=== PATIENT | female | born 1985 | race Caucasian/White ===

== ENCOUNTER 2017-12-02 12:15 | Emergency (ER) | payer MEDICAID ==
[~2017-12-02] VITALS: Ht 167.6 cm; Wt 50.0 kg
[~2017-12-02 12:15] MED LIST: CIPR500T4 PO
[2017-12-02 12:17] VITALS: BP 108/73; PULSE 85; RESP 18; TEMP 98.4; O2SAT 98
[2017-12-02 13:14] LABS: AUTOMATED NEUTROPHIL # 2.4 TH/MM3 (1.8-7.7); BASOPHIL % 0.6 % (0.0-2.0); EOSINOPHIL # 0.1 TH/MM3 (0-0.4); EOSINOPHIL % 1.7 % (0.0-4.0); HEMATOCRIT 34.8 % (35.0-46.0); HEMOGLOBIN 11.9 GM/DL (11.6-15.3); LYMPH % 40.1 % (9.0-44.0); MEAN CELL VOLUME 86.8 FL (80.0-100.0); MEAN CORPUSCULAR HEMOGLOBIN 29.7 PG (27.0-34.0); MEAN CORPUSCULAR HGB CONC 34.2 % (32.0-36.0); MEAN PLATELET VOLUME 9.5 FL (7.0-11.0); MONO % 8.2 % (0.0-8.0); MONOCYTE # 0.4 TH/MM3 (0-0.9); NEUT % 49.4 % (16.0-70.0); PLATELET COUNT 179 TH/MM3 (150-450); RED CELL DISTRIBUTION WIDTH 13.8 % (11.6-17.2); WHITE BLOOD COUNT 4.9 TH/MM3 (4.0-11.0)
[2017-12-02 13:22] LABS: INTERNATIONAL NORMALIZED RATIO 1.1 RATIO; PROTHROMBIN TIME - PATIENT 11.2 SEC (9.8-11.6)
[2017-12-02 13:40] LABS: ALBUMIN 3.8 GM/DL (3.4-5.0); ALT (GPT) 18 U/L (10-53); AST (GOT) 12 U/L (15-37); BLOOD UREA NITROGEN 17 MG/DL (7-18); CALCIUM 8.1 MG/DL (8.5-10.1); CHLORIDE 108 MEQ/L (98-107); CREATININE 1.02 MG/DL (0.50-1.00); GLOMERULAR FILTRATION RATE 63 ML/MIN (>89); GLUCOSE,RANDOM 58 MG/DL (74-106); MAGNESIUM 2.1 MG/DL (1.5-2.5); SODIUM (NA) 141 MEQ/L (136-145)
--- NOTE | 2017-12-02 13:40 | RADRPT ---
EXAM DATE/TIME: 12/02/2017 13:16 [place] COMPARISON: No previous studies available for comparison. INDICATIONS : Patient has had chest pressure and shortness of breath with history of smoking. MEDICAL HISTORY : None. SURGICAL HISTORY : thoracic surgery ENCOUNTER: Initial ACUITY: >1 year PAIN SCORE: 5/10 LOCATION: Bilateral mid chest FINDINGS: PA and lateral views of the chest demonstrate the lungs to be symmetrically aerated without evidence of mass, infiltrate or effusion. The cardiomediastinal contours are unremarkable. There is an old T6 compression fracture. Posterior fixation is seen extending from T4-T8. Orthopedic hardware is intact . Scoliotic curvature noted. CONCLUSION: No acute disease. Driss Carrasco Jr., MD on December 02, 2017 at 13:37 Board Certified Radiologist. This report was verified electronically.
[2017-12-02 13:44] LABS: ALKALINE PHOSPHATASE 45 U/L (45-117); TOTAL BILIRUBIN ADULT 0.2 MG/DL (0.2-1.0); TROPONIN I LESS THAN 0.02 NG/ML (0.02-0.05)
--- NOTE | 2017-12-02 14:43 | PD ---
HPI . Chest pain and shortness of breath Chief Complaint: Chest Pain Time Seen by Provider: 14:31 Travel History International Travel<30 days: No Contact w/Intl Traveler<30days: No Traveled to known affect area: No History of Present Illness HPI This patient presents with a chief complaint of chest pain and shortness of breath which started last night when she was "yelling." She states that she also felt lightheaded. Her symptoms are now improved. PFSH Past Medical History Respiratory: Yes (PT ON VENTILATOR FOR RESPIRATORY DISTRESS) ?: Not LMP: Now Social History Alcohol Use: No (NEGATIVE FOR ALCOHOL) Tobacco Use: Yes Substance Use: Yes (PT + FOR COCAINE, AND MARJUANA ) Allergies-Medications (Allergen,Severity, Reaction): Coded Allergies: No Known Allergies (Verified , 02/04/15) Reported Meds & Prescriptions Reported Meds & Active Scripts Active Cipro (Ciprofloxacin HCl) 500 Mg Tab 500 Mg PO Q12 5 Days Review of Systems Except as stated in HPI: all other systems reviewed are Neg Physical Exam Narrative GENERAL: Patient is sitting on the edge of bed using her phone in no distress at all. SKIN: warm/dry. Normal color and turgor. HEAD: Normocephalic. Atraumatic. EYES: Pupils equal and round. No scleral icterus. No injection or drainage. ENT: No nasal bleeding or discharge. Mucous membranes pink and moist. NECK: Trachea midline. Full range of motion without pain.. CARDIOVASCULAR: Regular rate and rhythm. Heart sounds are normal. RESPIRATORY: No accessory muscle use. Clear to auscultation. Breath sounds equal bilaterally. MUSCULOSKELETAL: No obvious deformities. NEUROLOGICAL: Awake and alert. No obvious cranial nerve deficits. Motor grossly within normal limits. Normal speech. PSYCHIATRIC: Appropriate mood and affect; insight and judgment normal. Data Data Last Documented VS Vital Signs Date Time Temp Pulse Resp B/P (MAP) Pulse Ox O2 Delivery O2 Flow Rate FiO2 12/02/17 12:17 98.4 85 18 108/73 (85) 98 Orders Orders Electrocardiogram (12/02/17 12:33) Ckmb (Isoenzyme) Profile (12/02/17 12:33) Complete Blood Count With Diff (12/02/17 12:33) Comprehensive Metabolic Panel (12/02/17 12:33) Magnesium (Mg) (12/02/17 12:33) Prothrombin Time / Inr (Pt) (12/02/17 12:33) Act Partial Throm Time (Ptt) (12/02/17 12:33) Troponin I (12/02/17 12:33) Chest, Pa & Lat (12/02/17 12:33) CKMB (12/02/17 12:40) CKMB% (12/02/17 12:40) Labs Laboratory Tests Test 12/02/17 12:40 White Blood Count 4.9 TH/MM3 Red Blood Count 4.00 MIL/MM3 Hemoglobin 11.9 GM/DL Hematocrit 34.8 % Mean Corpuscular Volume 86.8 FL Mean Corpuscular Hemoglobin 29.7 PG Mean Corpuscular Hemoglobin Concent 34.2 % Red Cell Distribution Width 13.8 % Platelet Count 179 TH/MM3 Mean Platelet Volume 9.5 FL Neutrophils (%) (Auto) 49.4 % Lymphocytes (%) (Auto) 40.1 % Monocytes (%) (Auto) 8.2 % Eosinophils (%) (Auto) 1.7 % Basophils (%) (Auto) 0.6 % Neutrophils # (Auto) 2.4 TH/MM3 Lymphocytes # (Auto) 2.0 TH/MM3 Monocytes # (Auto) 0.4 TH/MM3 Eosinophils # (Auto) 0.1 TH/MM3 Basophils # (Auto) 0.0 TH/MM3 CBC Comment DIFF FINAL Differential Comment Prothrombin Time 11.2 SEC Prothromb Time International Ratio 1.1 RATIO Activated Partial Thromboplast Time 26.1 SEC Blood Urea Nitrogen 17 MG/DL Creatinine 1.02 MG/DL Random Glucose 58 MG/DL Total Protein 7.0 GM/DL Albumin 3.8 GM/DL Calcium Level 8.1 MG/DL Magnesium Level 2.1 MG/DL Alkaline Phosphatase 45 U/L Aspartate Amino Transf (AST/SGOT) 12 U/L Alanine Aminotransferase (ALT/SGPT) 18 U/L Total Bilirubin 0.2 MG/DL Sodium Level 141 MEQ/L Potassium Level 3.7 MEQ/L Chloride Level 108 MEQ/L Carbon Dioxide Level 27.0 MEQ/L Anion Gap 6 MEQ/L Estimat Glomerular Filtration Rate 63 ML/MIN Total Creatine Kinase 129 U/L Creatine Kinase MB 1.6 NG/ML Troponin I LESS THAN 0.02 NG/ML MDM Medical Decision Making Medical Screen Exam Complete: Yes Emergency Medical Condition: Yes Interpretation(s) EKG shows a normal sinus rhythm with no acute ischemic change. Differential Diagnosis Differential diagnosis of chest pain includes but is not limited to musculoskeletal pain, pulmonary embolism, acute coronary syndrome, pneumonia, pleurisy Narrative Course Patient presents with chest pain, shortness of breath and lightheadedness which started after she was yelling last night. She had a panic attack. Workup. In the emergency department is normal. CBC & BMP Diagram 12/02/17 12:40 Total Protein 7.0, Albumin 3.8, Calcium Level 8.1 L, Magnesium Level 2.1, Alkaline Phosphatase 45, Aspartate Amino Transf (AST/SGOT) 12 L, Alanine Aminotransferase (ALT/SGPT) 18, Total Bilirubin 0.2 trop < 0.02 Last Impressions Chest X-Ray 12/02/17 1233 Signed Impressions: Service Date/Time: Saturday, December 02, 2017 13:16 - CONCLUSION: No acute disease. Driss Carrasco Jr., MD The history, exam, diagnostic testing, and current condition do not suggest any significant pathology to warrant further testing, continued ED treatment, admission, or surgical evaluation at this point. No EMC was found. The patient 's condition is stable and appropriate for discharge. Diagnosis Primary Impression: Panic Patient Instructions: General Instructions, Panic Attack (ED) Departure Forms: Tests/Procedures Disposition: 01 DISCHARGE HOME Condition: Stable Tyra Rodriguez MD Dec 02, 2017 14:43
--- NOTE | 2017-12-03 17:48 | EKG ---
Date Performed: 12/02/2017 Time Performed: 12:45:17 PTAGE: 32 years EKG: Sinus rhythm POSSIBLE RIGHT VENTRICULAR CONDUCTION DELAY BORDERLINE ECG INTERPRETATION BASED ON A DEFAULT AGE OF 40 YEARS PREVIOUS TRACING : 12/02/2017 12.37 DOCTOR: Vimal Gutiérrez Interpretating Date/Time 12/03/2017 17:39:25
== END 2017-12-02 15:21 | disposition home or self-care (01) ==
LOC: NEPD 12:15
DX: F41.0 Panic disorder [episodic paroxysmal anxiety] (principal); Z72.0 Tobacco use
CPT/HCPCS: 71046; 80053; 82550; 82552; 83735; 84484; 85025; 85610; 85730; 93005; 99285